=== PATIENT | male | born 1955 | race Caucasian/White ===

== ENCOUNTER 2016-09-02 09:35 | Emergency (ER) | payer BC ==
[2016-09-02] MEDS ORDERED: Ibuprofen 800 MG Tab PO ONE (10:14)
[2016-09-02] MEDS ORDERED: Cyclobenzaprine 10 MG Tab PO ONE (10:14)
--- NOTE | 2016-09-02 10:14 | EDM.PDOC ---
ED HPI GENERAL MEDICAL PROBLEM - General Chief Complaint: Back Pain or Injury Stated Complaint: BACK PAIN [id number] Time Seen by Provider: 09/02/16 10:09 Source of Information: Reports: Patient History Limitations: Reports: No Limitations - History of Present Illness INITIAL COMMENTS - FREE TEXT/NARRATIVE: Pt states that he was having lower back pain a few days ago and went to a chiropractor and had manipulation performed and he felt better, states that next morning he went back to chiropractor for readjustment and then drove 8 hours here for vacation. C/o lower back pain today. denies numbness, tingling or weakness. No other complaints. Onset: Today Duration: Intermittent Location: Reports: Back Quality: Reports: Same as Previous Episode, Sharp Severity: Severe Improves with: Reports: Rest Worsens with: Reports: Movement Context: Reports: Activity Associated Symptoms: Reports: No Other Symptoms Treatments [employer]: Reports: NSAIDS Left Lower Back Pain Score (Numeric/FACES): 7 - Related Data Allergies Allergy/AdvReac Type Severity Reaction Status Date / Time No Known Allergies Allergy Verified 09/02/16 09:42 Home Meds: Home Meds Aspirin [Halfprin] 81 mg PO BRK 09/02/16 [History] Losartan [Cozaar] 25 mg PO DAILY 09/02/16 [History] Past Medical History Cardiovascular History: Reports: Hypertension - Past Surgical History Musculoskeletal Surgical History: Reports: Shoulder Surgery Social & Family History - Family History Family Medical History: Noncontributory - Tobacco Use Smoking Status *Q: Former Smoker Used Tobacco, but Quit: Yes Month Tobacco Last Used: ? - Caffeine Use Caffeine Use: Reports: Coffee, Soda, Tea - Recreational Drug Use Recreational Drug Use: No ED ROS GENERAL - Review of Systems Review Of Systems: See Below Musculoskeletal: Reports: Back Pain, Muscle Stiffness ED EXAM,LOWER BACK PAIN/INJURY - Physical Exam Exam: See Below Exam Limited By: No Limitations General Appearance: Alert, WD/WN, No Apparent Distress Neck: Normal Inspection, Supple, Non-Tender, Full Range of Motion Respiratory/Chest: No Respiratory Distress, Lungs Clear, Normal Breath Sounds, No Accessory Muscle Use, Chest Non-Tender Cardiovascular: Normal Peripheral Pulses, Regular Rate, Rhythm, No Edema, No Gallop, No JVD, No Murmur, No Rub Extremities: Normal Inspection, Normal Range of Motion, Non-Tender, No Pedal Edema, Normal Capillary Refill Neurological: Alert, Normal Mood/Affect, Normal Dorsiflexion, CN II-XII Intact, Normal Plantar Flexion, Normal Gait, Normal Reflexes, No Motor/Sensory Deficits , Oriented x 3 Comments: Non tender to palpation L lower back. some tightness noted with palpation. Course - Vital Signs Last Recorded V/S: Last Vital Signs Temp 98.1 F 09/02/16 09:44 Pulse 72 09/02/16 11:13 Resp 18 09/02/16 11:13 BP 124/83 09/02/16 11:13 Pulse Ox 98 09/02/16 11:13 - Orders/Labs/Meds Orders: Active Orders 24 hr Category Date Time Status Lumbar Spine 2 or 3V [CR] Urgent Exams 09/02/16 10:14 Taken Meds: Medications Discontinued Medications Generic Name Dose Route Start Last Admin Trade Name Freq PRN Reason Stop Dose Admin Cyclobenzaprine HCl 10 mg 09/02/16 10:14 09/02/16 10:20 Flexeril PO 09/02/16 10:15 10 mg ONETIME ONE Administration Ibuprofen 800 mg 09/02/16 10:14 09/02/16 10:20 Motrin PO 09/02/16 10:15 800 mg ONETIME ONE Administration - Radiology Interpretation Free Text/Narrative:: No acute fractures. - Re-Assessments/Exams Free Text/Narrative Re-Assessment/Exam: 09/02/16 11:17 States that pain decreased mildly. Was able to lay flat however with movement mild pain returns. Will continue to use the flexeril and motrin for pain. encouraged to return for worsening symptoms. Departure - Departure Time of Disposition: 11:24 Disposition: Home, Self-Care 01 Condition: Good Clinical Impression: Muscle spasm of back, Strain of muscle and tendon of back wall of thorax, initial encounter - Discharge Information Instructions: Muscle Strain, [id number] Forms: ED Department Discharge Additional Instructions: Take the medication 3 times a day with foos. Get plenty of rest and return for worsening symptoms - My Orders Last 24 Hours: My Active Orders 09/02/16 10:14 Lumbar Spine 2 or 3V [CR] Urgent - Assessment/Plan Last 24 Hours: My Active Orders 09/02/16 10:14 Lumbar Spine 2 or 3V [CR] Urgent
[2016-09-02 11:13] VITALS: BP 124/83
== END 2016-09-02 11:28 | disposition home or self-care (01) ==
LOC: DL.ED 09:35
DX: S29.012A Strain of muscle and tendon of back wall of thorax, initial encounter (principal); I10 Essential (primary) hypertension; X58.XXXA Exposure to other specified factors, initial encounter; Y93.89 Activity, other specified; Z79.899 Other long term (current) drug therapy; Z87.891 Personal history of nicotine dependence
CPT/HCPCS: 72100; 99283; A9270